=== PATIENT | male | born 1975 | race Caucasian/White ===

== ENCOUNTER 2018-02-16 17:22 | Emergency (ER) | payer OTHER ==
[~2018-02-16] VITALS: Ht 182.9 cm; Wt 95.2 kg
[2018-02-16] MEDS ORDERED: REMERON15 MG PO (17:46)
[2018-02-16] MEDS ORDERED: PROZAC20 MG PO (17:47)
[2018-02-16] MEDS ORDERED: NORCO 5-325 TA1 EACH PO (18:07)
[2018-02-16] MEDS ORDERED: AUGMENTIN 875-1 EACH PO (18:07)
--- NOTE | 2018-02-16 19:40 | EKG ---
[facility] [address] [place], [place] [address] Signed Sinus rhythm with frequent premature ventricular complexes in a pattern of bigeminy Otherwise normal ECG No previous ECGs available Confirmed by ARPIT BRANCH DO ([id number]) on 02/16/2018 7:39:43 PM Electronically Signed By: ARPIT BRANCH DO 02/16/181939 PATIENT NAME: JEREMY MATOS BLANCA Electrocardiogram DATE OF : 71 PHYSICIAN: ARPIT BRANCH DO REPORT #: [id number] REPORT IS CONFIDENTIAL AND NOT TO BE RELEASED WITHOUT AUTHORIZATION
--- NOTE | 2018-02-19 14:01 | NUR ---
FAXED ER NOTES AND SUMMARY TO [facility]. RECIEVED FAX CONFIRMATION ON THIS.
== END 2018-02-16 18:21 | disposition home or self-care (01) ==
LOC: ED 17:22
DX: H66.92 Otitis media, unspecified, left ear (principal); R00.8 Other abnormalities of heart beat; Z88.5 Allergy status to narcotic agent; Z79.899 Other long term (current) drug therapy
CPT/HCPCS: 71045; 80048; 83735; 84484; 85025; 93005; 93010; 99284

== ENCOUNTER 2020-11-23 17:27 | Emergency (ER) | payer OTHER ==
[~2020-11-23] VITALS: Ht 182.9 cm; Wt 95.2 kg
[~2020-11-23 17:27] MED LIST: AUGMENTIN 875-1 EACH PO; NORCO 5-325 TA1 EACH PO; PROZAC20 MG PO; REMERON15 MG PO
[2020-11-23] MEDS ORDERED: OMEPRAZOLE20 M1 PO (18:33)
== END 2020-11-23 21:02 | disposition home or self-care (01) ==
LOC: ED 17:27
DX: S61.240A Puncture wound with foreign body of right index finger without damage to nail, initial encounter (principal); W26.8XXA Contact with other sharp object(s), not elsewhere classified, initial encounter; Z87.891 Personal history of nicotine dependence; Z79.899 Other long term (current) drug therapy
CPT/HCPCS: 99283-25